=== PATIENT | male | born 2000 | race Caucasian/White ===

== ENCOUNTER 2022-10-23 12:07 | Emergency (ER) | payer MEDICAID ==
[~2022-10-23] VITALS: Ht 170.2 cm; Wt 68.2 kg
[2022-10-23] MEDS ORDERED: POVIDONE-IODINE 10% 15 ML SOLUTION UD TP ONE (13:30)
[2022-10-23] MEDS ORDERED: SULFAMETHOX/TRIMETH DS 800-160 MG/TABLET PO ONE (13:30)
[2022-10-23] MEDS ORDERED: HYDROCODONE/ACETAMINOPHEN 5-325 MG TABLET PO ONE (13:30)
[2022-10-23] MEDS ORDERED: LIDOCAINE 1%/EPI 1:200,000/PF 30 ML VIAL PERC ONE (13:30)
[2022-10-23 14:53] VITALS: BP 123/76
[2022-10-23] MEDS ORDERED: AMOX1TAB16 PO (15:17)
[2022-10-23] MEDS ORDERED: IBUP-2070 PO (15:18)
[2022-10-23] MEDS ORDERED: HYDR-4723 PO (15:18)
== END 2022-10-23 15:32 | disposition home or self-care (01) ==
LOC: EMS 12:11
DX: L05.01 Pilonidal cyst with abscess (principal)
CPT/HCPCS: 10081; 99284; J3490

== ENCOUNTER 2022-10-25 13:28 | Emergency (ER) | payer MEDICAID ==
[~2022-10-25] VITALS: Ht 167.6 cm; Wt 72.7 kg
[~2022-10-25 13:28] MED LIST: AMOX1TAB16 PO; HYDR-4723 PO; IBUP-2070 PO
[2022-10-25 15:22] VITALS: BP 121/66
== END 2022-10-25 15:47 | disposition home or self-care (01) ==
LOC: EMS 13:28
DX: Z48.00 Encounter for change or removal of nonsurgical wound dressing (principal)
CPT/HCPCS: 99282; Z7502

== ENCOUNTER 2022-10-27 12:11 | Emergency (ER) | payer MEDICAID ==
[~2022-10-27] VITALS: Ht 167.6 cm; Wt 72.7 kg
[2022-10-27 12:26] VITALS: BP 106/68
== END 2022-10-27 15:04 | disposition home or self-care (01) ==
LOC: EMS 12:12
DX: L05.01 Pilonidal cyst with abscess (principal)
CPT/HCPCS: 99281; Z7502